=== PATIENT | female | born 1980 | race Caucasian/White ===

== ENCOUNTER 2024-12-06 15:53 | Emergency (ER) | payer OTHER, SELFPAY ==
[2024-12-06 15:57] VITALS: BP 135/80; PULSE 61; TEMP 36.8; O2SAT 100; BMI 25.7
--- NOTE | 2024-12-06 16:05 | CT_ITS ---
[address] [address] Patient Name: JORDAN JONES MRN: [id number] date: 1980 Sex: F Assigned Patient Location: ER Current Patient Location: [facility] Accession/Order Number: [id number] Exam Date: 12/06/2024 17:05 Report Date: 12/06/2024 17:17 At the request of: MARK LOW Procedure: CT abdomen pelvis w con CT abdomen pelvis w con 12/06/2024 4:35 PM SIGNS AND SYMPTOMS: Right lower quadrant pain and right flank pain TECHNIQUE: Multidetector ct axial images of the abdomen and pelvis were obtained with IV contrast. Multiplanar reformats were performed and reviewed to further define anatomy and possible pathology. CT was performed with one or more of the following dose reduction techniques: Automated exposure control, adjustment of the mA and/or kV according to patient size, or use of iterative reconstruction technique. COMPARISON: 05/12/2022 FINDINGS: Lower Chest: Within normal limits. ABDOMEN: Liver: Within normal limits. Bile Ducts: Normal caliber. Gallbladder: No calcified gallstones. Normal caliber wall. Pancreas: Within normal limits. Spleen: Within normal limits. Adrenals: There is a peripherally calcified centrally hypoattenuating 3.5 cm right adrenal nodule which is unchanged when compared to the prior exam. Kidneys: Within normal limits. Pelvis: Reproductive Organs: No pelvic masses. Ureters: Within normal limits. Bladder: Within normal limits. Bowel: There are a few uncomplicated colonic diverticula. There is no evidence of bowel obstruction. There is a normal appendix in the right lower quadrant. Mesenteric Lymph Nodes: No enlarged mesenteric lymph nodes. Peritoneum: No ascites or free air, no fluid collection. Vessels: within normal limits Retroperitoneum: Within normal limits. Abdominal Wall: Within normal limits. Bones: Within normal limits. CT/CT abdomen pelvis w con IMPRESSION: No acute intra-abdominal pathology. No bowel obstruction or obstructive uropathy. There are a few uncomplicated colonic diverticula. There is a peripherally calcified centrally hypoattenuating 3.5 cm right adrenal nodule which is unchanged when compared to the prior exam. Impression dictated by: Mo Santos M.D. 12/06/2024 5:17 PM Dictation Location: [place] [address] Electronically authenticated by: [id number] Y Date: 12/06/2024 17:17
--- NOTE | 2024-12-06 16:07 | ED.GENADUL1 ---
Documented by User: MARANDA SOTOMAYOR 12/06/24 17:41 HPI HPI - General Adult General Chief complaint: Abdominal Pain Stated complaint: ABDOMINAL PAIN Time Seen by Provider: 12/06/24 16:04 Source: patient Mode of arrival: walk-in Limitations: no limitations History of Present Illness HPI narrative: Patient is a 44-year-old female who presents to the emergency department with complaints of right lower quadrant abdominal pain rating near the right flank region that began upon awakening this morning. Patient states that pain is worse with activity and does mildly improve at rest. Patient denies any associated hematuria or dysuria. Patient denies any nausea, vomiting or diarrhea. Last bowel movement was this morning and normal. Patient last took ibuprofen at 12 PM today. Pain is not postprandial in nature patient has been able to eat without difficulty with her last meal being a snack at 1 PM. Patient states that she had a similar episode of this 2 years ago and was subsequently seen in the emergency department without significant diagnosis but denies any recurrence of symptoms until this morning. Onset (ago): hour(s) (8) Location: Reports abdomen (RLQ) Radiation: Reports back (lower) Severity: moderate (7/10) Quality: Reports sharp Pain Consistency: Reports constant Relieving factors: Reports none Exacerbating factors: Reports movement Associated symptoms: Reports denies other symptoms; Denies chest pain, cough, diaphoresis, fever/chills or nausea/vomiting Treatments prior to arrival: Reports NSAID Related Data Home Medications ?Medication ?Instructions ?Recorded ?Confirmed escitalopram oxalate 5 mg tablet 5 mg PO DAILY 12/06/24 12/06/24 Previous Rx's ?Medication ?Instructions ?Recorded acetaminophen 300 mg-codeine 30 mg 1 tab PO Q6H PRN pain 5 days #20 12/06/24 tablet tabs ibuprofen 800 mg tablet 800 mg PO Q8H PRN pain #20 tabs 12/06/24 ondansetron 4 mg disintegrating 4 mg PO Q6H PRN nausea and 12/06/24 tablet vomiting #20 tabs Allergies Allergy/AdvReac Type Severity Reaction Status Date / Time No Known Drug Allergies Allergy Verified 12/06/24 16:04 Opioid HPI Opioid Management Most Recent Opioid Data: Last Pain Scale 7 Today, 16:50 Last MAR Pain Assessment Today, 16:50 Review of Systems ROS Status of ROS 10 or more systems reviewed and unremarkable except as noted in history and below Constitutional Denies: fever or chills Cardiovascular Denies: chest pain Respiratory Denies: shortness of breath Gastrointestinal Denies: vomiting or diarrhea Genitourinary Denies: painful urination, blood in urine or difficulty voiding Musculoskeletal Reports: back pain Integumentary/Breast Denies: rash PFSH PFSH Social History Little interest or pleasure in doing things: not at all Feeling down, depressed, or hopeless: not at all Exam Constitutional Vital Signs, click to edit/add: Last Vital Signs Temp 98.3 F 12/06/24 15:57 Pulse 61 12/06/24 15:57 Resp 20 12/06/24 15:57 BP 135/80 12/06/24 15:57 Pulse Ox 100 12/06/24 15:57 O2 Del Method Room Air 12/06/24 15:57 Documenting provider has reviewed patient's vital signs: yes Common normals: no apparent distress General appearance: cooperative, well kempt and well developed; not in distress HENMT Common normals: normocephalic Eye Common normals: PERRL and no scleral icterus Respiratory Common normals: normal respiratory effort Cardio Common normals: regular rate GI Common normals: soft to palpation Palpation: tender Details: RLQ; negative for psoas sign and negative for Rovsing's sign Back & Pelvis Common normals: no CVA tenderness Course Vital Signs Vital signs: Vital Signs Temperature 98.3 F 12/06/24 15:57 Pulse Rate 61 12/06/24 15:57 Respiratory Rate 20 12/06/24 15:57 Blood Pressure 135/80 12/06/24 15:57 Pulse Oximetry 100 12/06/24 15:57 Oxygen Delivery Method Room Air 12/06/24 15:57 Temperature 98.3 F 12/06/24 15:57 Pulse Rate 61 12/06/24 15:57 Respiratory Rate 20 12/06/24 15:57 Blood Pressure 135/80 12/06/24 15:57 Pulse Oximetry 100 12/06/24 15:57 Oxygen Delivery Method Room Air 12/06/24 15:57 Medical Decision Making Lab Data Labs: Lab Results 12/06/24 12/06/24 Range/Units 16:10 16:20 WBC 8.6 (4.0-11.0) 10^3/uL RBC 4.78 (4.20-5.40) 10^6/uL Hgb 14.4 (12.0-16.0) g/dL Hct 44.1 (36.0-48.0) % MCV 92.3 (81.0-99.0) fL MCH 30.1 (26.7-34.0) pg MCHC 32.7 (29.9-35.2) g/dL RDW 14.6 (11.0-15.0) % Plt Count 251 (150-450) 10^3/uL MPV 10.5 (9.5-13.5) fL Neut % (Auto) 59.7 (43.0-75.0) % Lymph % (Auto) 32.1 (20.5-60.0) % [place] % (Auto) 6.7 (1.7-12.0) % Eos % (Auto) 0.9 (0.9-7.0) % Baso % (Auto) 0.3 (0.2-2.0) % Neut # (Auto) 5.2 (1.4-6.5) 10^3/uL Lymph # (Auto) 2.8 (1.2-3.8) 10^3/uL [place] # (Auto) 0.6 (0.3-0.8) 10^3/uL Eos # (Auto) 0.1 (0.0-0.7) 10^3/uL Baso # (Auto) 0.0 (0.0-0.1) 10^3/uL Abs Immat Gran (auto) 0.03 (0.00-0.03) 10^3/uL Imm/Tot Granulo (auto) 0.3 (0.0-0.5) % Sodium 138 (136-145) mmol/L Potassium 3.9 (3.5-5.1) mmol/L Chloride 101 (98-107) mmol/L Carbon Dioxide 23.7 (21.0-32.0) mmol/L Anion Gap 17.2 BUN 16.0 (7.0-18.0) mg/dL Creatinine 0.72 (0.55-1.02) mg/dL Est GFR ( Amer) >60 (>=60 mL/min/1.73m^2) Est GFR (Non-Af Amer) >60 (>=60 mL/min/1.73m^2) BUN/Creatinine Ratio 22.2 Glucose 86 (74-106) mg/dL Lactate 1.8 (0.4-2.0) mmol/L Calcium 9.3 (8.5-10.1) mg/dL Total Bilirubin 0.6 (0.2-1.0) mg/dL AST 17 (15-37) U/L ALT 17 (14-59) U/L Alkaline Phosphatase 59 (46-116) U/L Total Protein 8.0 (6.4-8.2) g/dL Albumin 4.4 (3.4-5.0) g/dL Globulin 3.6 g/dL Albumin/Globulin Ratio 1.2 Lipase 37.0 (16.0-77.0) U/L Urine Color Yellow (YELLOW) Urine Clarity Clear (CLEAR) Urine pH 7.0 (5.0-9.0) Ur Specific [place] 1.020 (1.005-1.025) Urine Protein Negative (NEG/TRACE) mg/dL Urine Glucose (UA) Negative (NEGATIVE) mg/dL Urine Ketones 40 A (NEGATIVE) mg/dL Urine Occult Blood Negative (NEGATIVE) Urine Nitrite Negative (NEGATIVE) Urine Bilirubin Negative (NEGATIVE) Urine Urobilinogen 1.0 (0.2-1.0) EU/dL Ur Leukocyte Esterase Negative (NEGATIVE) Urine RBC 0-2 (0-2) #/HPF Urine WBC None seen (NONE SEEN) #/HPF Ur Squamous Epith Cells Few A (NONE/RARE) #/LPF Urine Crystals None seen (None Seen) #/HPF Urine Bacteria Small A (NONE SEEN) #/HPF Urine Casts None seen (NONE SEEN) #/LPF Urine Mucus Small A (NONE SEEN) Ur Culture Indicated? Yes-[facility] [place] Imaging Data CT scan - abdomen: Radiologist's impression: ITS Impressions Abdomen/Pelvis CT 12/06/24 16:05 IMPRESSION: No acute intra-abdominal pathology. No bowel obstruction or obstructive uropathy. There are a few uncomplicated colonic diverticula. There is a peripherally calcified centrally hypoattenuating 3.5 cm right adrenal nodule which is unchanged when compared to the prior exam. Impression dictated by: Mo Santos M.D. 12/06/2024 5:17 PM Dictation Location: [place] [address] Electronically authenticated by: [id number] Y Date: 12/06/2024 17:17 Discharge Plan Discharge Chief Complaint: Abdominal Pain Clinical Impression: Abdominal pain Qualifiers: Abdominal location: right lower quadrant Qualified Code(s): R10.31 - Right lower quadrant pain Patient Disposition: Home, Self-Care Time of Disposition Decision: 17:26 Condition: Good Mode of Transportation: Private Vehicle Prescriptions / Home Meds: New acetaminophen-codeine 300-30 mg tablet 1 tab PO Q6H PRN (Reason: pain) 5 Days Qty: 20 0RF ibuprofen 800 mg tablet 800 mg PO Q8H PRN (Reason: pain) Qty: 20 0RF ondansetron 4 mg tablet,disintegrating 4 mg PO Q6H PRN (Reason: nausea and vomiting) Qty: 20 0RF No Action escitalopram oxalate 5 mg tablet 5 mg PO DAILY Print Language: Bahamian Instructions: Abdominal Pain (ED) Referrals: Escobar Coburn MD [Primary Care Provider, Family Practice] - 1 week Documented by User: Clay Mercado MD 12/06/24 17:29 HPI HPI - General Adult General Chief complaint: Abdominal Pain Stated complaint: ABDOMINAL PAIN Time Seen by Provider: 12/06/24 16:04 Related Data Home Medications ?Medication ?Instructions ?Recorded ?Confirmed escitalopram oxalate 5 mg tablet 5 mg PO DAILY 12/06/24 12/06/24 Previous Rx's ?Medication ?Instructions ?Recorded acetaminophen 300 mg-codeine 30 mg 1 tab PO Q6H PRN pain 5 days #20 12/06/24 tablet tabs ibuprofen 800 mg tablet 800 mg PO Q8H PRN pain #20 tabs 12/06/24 ondansetron 4 mg disintegrating 4 mg PO Q6H PRN nausea and 12/06/24 tablet vomiting #20 tabs Allergies Allergy/AdvReac Type Severity Reaction Status Date / Time No Known Drug Allergies Allergy Verified 12/06/24 16:04 Opioid HPI Opioid Management Most Recent Opioid Data: Last Pain Scale 7 Today, 16:50 Last MAR Pain Assessment Today, 16:50 PFSH PFSH Social History Little interest or pleasure in doing things: not at all Feeling down, depressed, or hopeless: not at all Exam Constitutional Vital Signs, click to edit/add: Last Vital Signs Temp 98.3 F 12/06/24 15:57 Pulse 61 12/06/24 15:57 Resp 20 12/06/24 15:57 BP 135/80 12/06/24 15:57 Pulse Ox 100 12/06/24 15:57 O2 Del Method Room Air 12/06/24 15:57 Course Vital Signs Vital signs: Vital Signs Temperature 98.3 F 12/06/24 15:57 Pulse Rate 61 12/06/24 15:57 Respiratory Rate 20 12/06/24 15:57 Blood Pressure 135/80 12/06/24 15:57 Pulse Oximetry 100 12/06/24 15:57 Oxygen Delivery Method Room Air 12/06/24 15:57 Temperature 98.3 F 12/06/24 15:57 Pulse Rate 61 12/06/24 15:57 Respiratory Rate 12/06/24 15:57 Blood Pressure 135/80 12/06/24 15:57 Pulse Oximetry 100 12/06/24 15:57 Oxygen Delivery Method Room Air 12/06/24 15:57 Medical Decision Making MDM Narrative Medical decision making narrative: Blood work and CAT scan are negative. No specific cause is identified. She will be treated symptomatically and will follow-up with her doctor. Treatment diagnosis and follow-up were discussed with the patient. Differential Diagnosis Differential Diagnosis: Ovarian cyst, diverticulitis, colitis, appendicitis, UTI Lab Data Lab results reviewed: Yes I reviewed the patient's lab results Labs: Lab Results 12/06/24 12/06/24 Range/Units 16:10 16:20 WBC 8.6 (4.0-11.0) 10^3/uL RBC 4.78 (4.20-5.40) 10^6/uL Hgb 14.4 (12.0-16.0) g/dL Hct 44.1 (36.0-48.0) % MCV 92.3 (81.0-99.0) fL MCH 30.1 (26.7-34.0) pg MCHC 32.7 (29.9-35.2) g/dL RDW 14.6 (11.0-15.0) % Plt Count 251 (150-450) 10^3/uL MPV 10.5 (9.5-13.5) fL Neut % (Auto) 59.7 (43.0-75.0) % Lymph % (Auto) 32.1 (20.5-60.0) % [place] % (Auto) 6.7 (1.7-12.0) % Eos % (Auto) 0.9 (0.9-7.0) % Baso % (Auto) 0.3 (0.2-2.0) % Neut # (Auto) 5.2 (1.4-6.5) 10^3/uL Lymph # (Auto) 2.8 (1.2-3.8) 10^3/uL [place] # (Auto) 0.6 (0.3-0.8) 10^3/uL Eos # (Auto) 0.1 (0.0-0.7) 10^3/uL Baso # (Auto) 0.0 (0.0-0.1) 10^3/uL Abs Immat Gran (auto) 0.03 (0.00-0.03) 10^3/uL Imm/Tot Granulo (auto) 0.3 (0.0-0.5) % Sodium 138 (136-145) mmol/L Potassium 3.9 (3.5-5.1) mmol/L Chloride 101 (98-107) mmol/L Carbon Dioxide 23.7 (21.0-32.0) mmol/L Anion Gap 17.2 BUN 16.0 (7.0-18.0) mg/dL Creatinine 0.72 (0.55-1.02) mg/dL Est GFR ( Amer) >60 (>=60 mL/min/1.73m^2) Est GFR (Non-Af Amer) >60 (>=60 mL/min/1.73m^2) BUN/Creatinine Ratio 22.2 Glucose 86 (74-106) mg/dL Lactate 1.8 (0.4-2.0) mmol/L Calcium 9.3 (8.5-10.1) mg/dL Total Bilirubin 0.6 (0.2-1.0) mg/dL AST 17 (15-37) U/L ALT 17 (14-59) U/L Alkaline Phosphatase 59 (46-116) U/L Total Protein 8.0 (6.4-8.2) g/dL Albumin 4.4 (3.4-5.0) g/dL Globulin 3.6 g/dL Albumin/Globulin Ratio 1.2 Lipase 37.0 (16.0-77.0) U/L Urine Color Yellow (YELLOW) Urine Clarity Clear (CLEAR) Urine pH 7.0 (5.0-9.0) Ur Specific [place] 1.020 (1.005-1.025) Urine Protein Negative (NEG/TRACE) mg/dL Urine Glucose (UA) Negative (NEGATIVE) mg/dL Urine Ketones 40 A (NEGATIVE) mg/dL Urine Occult Blood Negative (NEGATIVE) Urine Nitrite Negative (NEGATIVE) Urine Bilirubin Negative (NEGATIVE) Urine Urobilinogen 1.0 (0.2-1.0) EU/dL Ur Leukocyte Esterase Negative (NEGATIVE) Urine RBC 0-2 (0-2) #/HPF Urine WBC None seen (NONE SEEN) #/HPF Ur Squamous Epith Cells Few A (NONE/RARE) #/LPF Urine Crystals None seen (None Seen) #/HPF Urine Bacteria Small A (NONE SEEN) #/HPF Urine Casts None seen (NONE SEEN) #/LPF Urine Mucus Small A (NONE SEEN) Ur Culture Indicated? Yes-[facility] [place] Imaging Data CT scan - abdomen: Radiologist's impression: ITS Impressions Abdomen/Pelvis CT 12/06/24 16:05 IMPRESSION: No acute intra-abdominal pathology. No bowel obstruction or obstructive uropathy. There are a few uncomplicated colonic diverticula. There is a peripherally calcified centrally hypoattenuating 3.5 cm right adrenal nodule which is unchanged when compared to the prior exam. Impression dictated by: Mo Santos M.D. 12/06/2024 5:17 PM Dictation Location: [place] [address] Electronically authenticated by: [id number] Y Date: 12/06/2024 17:17 Discharge Plan Discharge Chief Complaint: Abdominal Pain Clinical Impression: Abdominal pain Qualifiers: Abdominal location: right lower quadrant Qualified Code(s): R10.31 - Right lower quadrant pain Patient Disposition: Home, Self-Care Time of Disposition Decision: 17:26 Condition: Good Mode of Transportation: Private Vehicle Prescriptions / Home Meds: New acetaminophen-codeine 300-30 mg tablet 1 tab PO Q6H PRN (Reason: pain) 5 Days Qty: 20 0RF ibuprofen 800 mg tablet 800 mg PO Q8H PRN (Reason: pain) Qty: 20 0RF ondansetron 4 mg tablet,disintegrating 4 mg PO Q6H PRN (Reason: nausea and vomiting) Qty: 20 0RF No Action escitalopram oxalate 5 mg tablet 5 mg PO DAILY Print Language: Bahamian Instructions: Abdominal Pain (ED) Referrals: Escobar Coburn MD [Primary Care Provider, Family Practice] - 1 week
[2024-12-06 16:34] LABS: Basophils Percent Auto 0.3 % (0.2-2.0); Eosinophils Absolute Auto 0.1 10^3/uL (0.0-0.7); Eosinophils Percent Auto 0.9 % (0.9-7.0); Hematocrit 44.1 % (36.0-48.0); Hemoglobin 14.4 g/dL (12.0-16.0); Immature Granulocytes Abs Auto 0.03 10^3/uL (0.00-0.03); Immature Granulocytes Pct Auto 0.3 % (0.0-0.5); Lymphocytes Absolute Auto 2.8 10^3/uL (1.2-3.8); Lymphocytes Percent Auto 32.1 % (20.5-60.0); Mean Corpuscular HGB Conc 32.7 g/dL (29.9-35.2); Mean Corpuscular Hemoglobin 30.1 pg (26.7-34.0); Mean Corpuscular Volume 92.3 fL (81.0-99.0); Mean Platelet Volume 10.5 fL (9.5-13.5); Monocytes Absolute Auto 0.6 10^3/uL (0.3-0.8); Monocytes Percent Auto 6.7 % (1.7-12.0); Neutrophils Absolute Auto 5.2 10^3/uL (1.4-6.5); Neutrophils Percent Auto 59.7 % (43.0-75.0); Platelet Count 251 10^3/uL (150-450); Red Blood Count 4.78 10^6/uL (4.20-5.40); Red Cell Distribution Width 14.6 % (11.0-15.0); White Blood Count 8.6 10^3/uL (4.0-11.0)
[2024-12-06 16:40] LABS: Bilirubin Urine NEGATIVE (NEGATIVE); Blood Urine NEGATIVE (NEGATIVE); Clarity Urine CLEAR (CLEAR); Color Urine YELLOW (YELLOW); Glucose Urine UA NEGATIVE (NEGATIVE); Ketones Urine 40 mg/dL (NEGATIVE); Leukocyte Esterase Urine NEGATIVE (NEGATIVE); Nitrite Urine NEGATIVE (NEGATIVE); Protein Urine NEGATIVE (NEG/TRACE)
[2024-12-06] MEDS: MORPHINE SULFATE 2 MG/ML SYRINGE IV (16:50)
[2024-12-06] MEDS: 0.9 % SODIUM CHLORIDE 1,000 ML 999 ML IV (16:50)
[2024-12-06] MEDS: PROMETHAZINE HCL 12.5 MG in 0.9 % SODIUM CHLORIDE 50 ML 202 MG IV (16:51)
[2024-12-06 16:52] LABS: Alanine Aminotransferase 17 U/L (14-59); Albumin Globulin Ratio 1.2; Albumin Level 4.4 g/dL (3.4-5.0); Alkaline Phosphatase 59 U/L (46-116); Anion Gap 17.2; Aspartate Amino Transferase 17 U/L (15-37); BUN Creatinine Ratio 22.2; Bilirubin Total 0.6 mg/dL (0.2-1.0); Calcium 9.3 mg/dL (8.5-10.1); Carbon Dioxide 23.7 mmol/L (21.0-32.0); Chloride 101 mmol/L (98-107); Estimated GFR (African America >60 (>=60 mL/min/1.73m^2); Estimated GFR (Non-African Ame >60 (>=60 mL/min/1.73m^2); Globulin 3.6 g/dL; Glucose 86 mg/dL (74-106); Potassium 3.9 mmol/L (3.5-5.1); Sodium 138 mmol/L (136-145)
[2024-12-06 16:53] LABS: Bacteria Urine SMALL #/HPF (NONE SEEN); Cast Seen? NONE SEEN #/LPF (NONE SEEN); Crystals Seen? None Seen #/HPF (None Seen); Mucus Urine SMALL (NONE SEEN); RBC Urine 0-2 #/HPF (0-2); Squamous Epithelial Cell Urine FEW #/LPF (NONE/RARE); Urine Culture Indicated YES-FRMC; WBC Urine NONE SEEN #/HPF (NONE SEEN)
[2024-12-06 16:54] LABS: Lactate/Lactic Acid 1.8 mmol/L (0.4-2.0)
== END 2024-12-06 18:06 | disposition home or self-care (01) ==
PROVIDERS: Physician Assistant; Emergency Provider Emergency Medicine; PCP Family Medicine
DX: R10.31 Right lower quadrant pain (principal); K57.30 Diverticulosis of large intestine without perforation or abscess without bleeding; D35.01 Benign neoplasm of right adrenal gland
CPT/HCPCS: 36415; 74177; 80053; 81001; 83605; 83690; 85025; 87086; 96365; 96375; 99285; J2270; J2550; Q9967